=== PATIENT | male | born 2000 | race Caucasian/White ===

== ENCOUNTER → 2021-01-07 10:38 | Outpatient (BNVA) | payer MEDICAID, SELFPAY | PROVIDERS: Family Provider Nurse Practitioner Family; PCP Family Medicine; Referring Provider Family Medicine; Visit Provider Specialist | DX: S62.308A Unspecified fracture of other metacarpal bone, initial encounter for closed fracture (principal); X58.XXXA Exposure to other specified factors, initial encounter | CPT/HCPCS: 73130 ==

== ENCOUNTER → 2021-01-25 10:57 | Outpatient (BNVA) | payer MEDICAID, SELFPAY | PROVIDERS: Family Provider Nurse Practitioner Family; PCP Family Medicine; Visit Provider Specialist | DX: S62.336D Displaced fracture of neck of fifth metacarpal bone, right hand, subsequent encounter for fracture with routine healing (principal); X58.XXXD Exposure to other specified factors, subsequent encounter | CPT/HCPCS: 73130 ==

== ENCOUNTER → 2021-10-08 14:15 | Outpatient (BNVA) | payer MEDICAID, SELFPAY | PROVIDERS: Family Provider Nurse Practitioner Family; Visit Provider Emergency Medicine | DX: R68.89 Other general symptoms and signs (principal); R11.0 Nausea; U07.1 COVID-19 | CPT/HCPCS: 87426 ==

== ENCOUNTER 2022-06-16 09:43 | Emergency (ER) | payer MEDICAID, SELFPAY ==
[2022-06-16 09:45] VITALS: BP 147/98; PULSE 91; RESP 16; TEMP 37.1; O2SAT 98
--- NOTE | 2022-06-16 10:01 | W.ED.FALL ---
HPI - Fall General: Chief Complaint: Fall Stated Complaint: Sternum pain, not able to eat without pain Time Seen by Provider: 06/16/22 09:44 Source: patient Mode of arrival: ambulatory Limitations: no limitations History of Present Illness: Patient is a 21-year-old male who presents to ED today with a complaint of chest pain following a fall/trauma that occurred approximately 4 to 5 days ago. He states he was on the ladder when he accidentally fell off at a height of approximately 5 feet. Patient states he is not sure exactly how he landed but states since the incident he had been having pain to his anterior chest/sternum. He was seen at [place] [facility] and had a chest x-ray performed which was negative so discharged home. Patient states since then pain has continued. He seems to have worsening pain with lying flat and with swallowing. He does not overly complain of dyspnea. Denies lightheadedness, dizziness, passing out episodes. No fevers. He has no other physical complaints at this time. MD complaint: fall Onset (ago): hour(s) Fall from: from height (distance) (5 ft-ladder) Fall witnessed: yes, by bystander Place fall occurred: home Loss of consciousness: None Prolonged down time: no Symptoms prior to fall: none Context: tripped/slipped Location of injury: chest Associated symptoms-after fall: Reports chest pain; Denies abdominal pain, headache(s), hematuria, lightheadedness or neck pain Review of Systems Const: Denies: fever(s), chills, body aches, fatigue or malaise Eyes: Denies: change in vision, blurry vision, photophobia, eye discharge, floaters or seeing flashes ENMT: Denies: throat pain, odynophagia, ear or mastoid pain, ear discharge, nasal discharge, epistaxis or sinus pain Card: Reports: chest pain; Denies: palpitations, irregular heart rhythm, edema, swelling of feet/ankles, lightheadedness, syncope, pre-syncope, dyspnea on exertion, orthopnea, leg pain with exertion or acrocyanosis Resp: Denies: dyspnea or pain on inspiration GI: Denies: abdominal pain, nausea, vomiting or change in bowel habits : Denies: flank pain or hematuria Musc: Denies: neck pain, back pain, extremity pain or joint pain Skin/Breast: Denies: rash Neuro: Denies: headache(s), numbness in extremities, weakness in extremities, sensory changes or dizziness PFS ED PFSH: Medical History Cat allergies Social History Smoking and tobacco status: never smoked Alcohol intake: never Substance/Drug Use: never Current gender identity: Male Physical Exam Const: COMMON NORMALS: no acute distress, average body habitus, patient oriented x3, no limitations, healthy appearing, alert and well nourished ORIENTATION/CONSCIOUSNESS: Yes awake, Yes oriented to person, Yes oriented to place and Yes oriented to time HENMT: COMMON NORMALS: normocephalic and atraumatic HEAD & SCALP: normocephalic and atraumatic Neck/C-Spine: COMMON NORMALS: full ROM, no lymphadenopathy, supple and no meningeal signs OTHER: no crepitus palpated in anterior soft tissues Chest: COMMONS NORMALS: normal inspection of the chest OTHER: TTP anterior chest Resp: COMMON NORMALS: normal respiratory effort and clear to auscultation bilaterally AUSCULTATION: clear to auscultation bilaterally Cardio: COMMON NORMALS: regular rate and regular rhythm RATE: regular rate RHYTHM: regular rhythm GI: COMMON NORMALS: Normal to inspection, nondistended, normoactive bowel sounds present, Soft to palpation, non-tender, No hepatosplenomegaly present and no masses PALPATION: Yes Soft to palpation and Yes No hepatosplenomegaly present Extremity: COMMON NORMALS: normal to inspection GENERAL: Yes normal exam except as noted Neuro: JOHN COMA SCALE: document GCS findings John coma scale eye opening: Spontaneous [place] coma scale verbal response: Orientated John coma scale motor response: Obey commands Green[place] coma scale total score: 15 COMMON NORMALS: patient oriented x3 SENSORIUM/ORIENTATION: Yes alert, Yes oriented to person, Yes oriented to place and Yes oriented to time MENINGEAL SIGNS: Yes no meningeal signs Skin: COMMON NORMALS: no rashes or lesions noted GENERAL SKIN EXAM: no rashes or lesions noted Course Vital Signs: Vital signs: Vital Signs Temperature 98.7 F 06/16/22 09:45 Pulse Rate 85 06/16/22 11:02 Respiratory Rate 16 06/16/22 11:02 Blood Pressure 146/89 06/16/22 11:02 Pulse Oximetry 96 06/16/22 11:02 Oxygen Delivery Me thod Room Air 06/16/22 09:45 MDM - Fall Medical Decision Making CT chest obtained which is normal. Vital signs are stable. We will give patient some pain medications to help ease discomfort. Recommend he follow-up with primary care later this week/early next week for reevaluation. Strict return to ED precautions given. Lab Data Radiology Impressions Chest X-Ray 06/16/22 10:13 IMPRESSION: No acute findings. Chest CT 06/16/22 10:14 IMPRESSION: 1. No chest wall hematoma. 2. No rib or sternal fractures identified. 3. No pulmonary contusion. Discharge Plan Discharge Patient Disposition: Home Clinical Impression: Chest wall contusion Qualifiers: Encounter type: initial encounter Laterality: unspecified laterality Qualified Code(s): S20.219A - Contusion of unspecified front wall of thorax, initial encounter Condition: Stable Prescriptions: New tramadol 50 mg tablet 50 mg PO Q6H PRN (Reason: pain) Qty: 14 0RF No Action diphenhydramine HCl [Benadryl] 25 mg capsule 25 mg PO DAILY PRN fluticasone propionate [Flonase Allergy Relief] 50 mcg/actuation spray,suspension 1 spray INTRANASAL BID 30 Days Qty: 18.2 5RF Rx Instructions: administer into each nostril [id number] [Bromfed DM] 2-30-10 mg/5 mL syrup 7.5 ml PO Q6H PRN (Reason: cold symptoms) Qty: 160 0RF dexamethasone 2 mg tablet 6 mg PO DAILY 5 Days Qty: 15 0RF ondansetron 4 mg tablet,disintegrating 4 mg PO Q6H PRN (Reason: nausea and vomiting) Qty: 12 0RF Rx Instructions: 340b please Paxlovid (EUA) 150 mg x 2- 100 mg tablet See Rx Instructions PO PER PKG DIR Qty: 1 0RF Rx Instructions: PO PER PKG DIR Discharge Orders: Discharge ED (Routine); Ordered 06/16/22 Ordered By: Elva Marx Patient Instructions: Contusion in Adults (ED), Opioid Safety, Pain Management Coding Level of Care Code ED Filter Tender Jelly for Stacie Nielsen
--- NOTE | 2022-06-16 10:13 | XRR_ITS ---
PROCEDURE INFORMATION: Exam: XR Chest Exam date and time: 06/16/2022 10:30 AM Age: 21 years old Clinical indication: Shortness of breath; Additional info: Trauma TECHNIQUE: Imaging protocol: Radiologic exam of the chest. Views: 1 view. COMPARISON: CT chest wo con [id number] 06/16/2022 10:17 AM FINDINGS: Lungs: There is no consolidation. Pleural spaces: There is no pleural effusion or pneumothorax. Heart/Mediastinum: Cardiomediastinal contours are unremarkable. Bones/joints: Bones are unremarkable. XR/XR chest 1V portable [id number] IMPRESSION: No acute findings.
--- NOTE | 2022-06-16 10:14 | CT_ITS ---
WS: [id number] CT chest wo con [id number] HISTORY: trauma/fall; sob, pain, painful eating/swallowing TECHNIQUE: Axial imaging performed through the thorax. Coronal and sagittal reformats are submitted. All CT scans at [facility] use at least one of these dose optimization techniques: automated exposure control; mA and/or kV adjustment per patient size (includes targeted exams where dose is mat ched to clinical indication); or iterative reconstruction. CONTRAST: None DLP: 561.57 mGy.cm COMPARISON: None available. Lungs and central airway: Normal. No pneumothorax. No pulmonary laceration or opacification. Pleura: Normal. No pleural effusion. Heart and pericardium: Normal size heart with no pericardial effusion. Mediastinum and lucrecia: No mediastinum or hilar adenopathy. Minimal residual thymic tissue. Vessels: Normal size aortic and pulmonary artery. No coronary artery calcifications. Chest wall and lower neck: No soft tissue masses. Upper abdomen: Normal. Osseous structures: No destructive process. CT/CT chest wo con [id number] IMPRESSION: 1. No chest wall hematoma. 2. No rib or sternal fractures identified. 3. No pulmonary contusion.
[2022-06-16 10:21] VITALS: BP 149/89; PULSE 88; O2SAT 95
--- NOTE | 2022-06-16 10:51 | DCPLANNER ---
Addendum entered by Meche Mancuso 06/16/22 11:49: manager investigations called the [facility], was told that patient is not established at the clinic, has been seen in the walk in clinic. Original Note: manager investigations seen patient due to no primary care physician - patient states that he sees Aidan Kou at the [facility].
[2022-06-16 11:02] VITALS: BP 146/89; PULSE 85; RESP 16; O2SAT 96
== END 2022-06-16 11:03 | disposition home or self-care (01) ==
PROVIDERS: Emergency Provider Physician Assistant
DX: S20.219A Contusion of unspecified front wall of thorax, initial encounter (principal); W11.XXXA Fall on and from ladder, initial encounter
CPT/HCPCS: 71045; 71250; 99285